=== PATIENT | female | born 1935 | race Caucasian/White ===

== ENCOUNTER → 2016-02-23 | Outpatient (REF) | payer MEDICARE ==
[2016-02-23 12:21] LABS: BILIRUBIN,URINE Negative (Negative); CLARITY,URINE Clear; COLOR,URINE Yellow; GLUCOSE, URINE (UA) Negative (Negative); LEUKOCYTE ESTERASE ,URINE Negative (Negative); UROBILINOGEN,URINE 0.2 mg/dL (0.2-1.0)
== END ==
LOC: LAB 11:51
PROVIDERS: ATTEND Family Medicine
DX: R82.99 Other abnormal findings in urine (principal)
CPT/HCPCS: 81003

== ENCOUNTER → 2016-07-05 | Outpatient (REF) | payer MEDICARE ==
[~2016-07-05] MED LIST: ALPR0.257 PO; DONE5TAB4 PO; LORA5TAB9 PO; LSNP10T PO; RSP.25T PO
[2016-07-05 12:17] LABS: ANION GAP 13.2 MEQ/L (3-15)
== END ==
LOC: LAB 11:17
PROVIDERS: ATTEND Family Medicine
DX: I50.9 Heart failure, unspecified (principal); R73.09 Other abnormal glucose
CPT/HCPCS: 80048; 83036